=== PATIENT | male | born 1970 | race Caucasian/White ===

== ENCOUNTER 2018-06-04 08:20 | Outpatient (REF) | payer BC, SELFPAY ==
[2018-06-04 21:17] LABS: Hemoglobin A1C 5.7 % (4.5-6.2)
[2018-06-04 21:29] LABS: ALT 27 U/L (12-78); AST 17 U/L (15-37); Albumin 3.6 g/dL (3.4-5.0); Alkaline Phosphatase 132 U/L (46-116); Anion Gap 8.6 mmol/L (3-11); BUN 12 mg/dL (7-18); Bilirubin, Total 0.5 mg/dL (0.2-1.0); CO2 24.4 mmol/L (21.0-32.0); Calcium 8.2 mg/dL (8.5-10.1); Chloride 106 mmol/L (98-107); Cholesterol 135 mg/dL (50-200); Glucose 94 mg/dL (70-100); HDL Cholesterol 22 mg/dL (40-60); LDL CHOLESTEROL 87 mg/dL (<100); Potassium 4.5 mmol/L (3.5-5.1); Sodium 139 mmol/L (136-145); Triglyceride 166 mg/dL (30-150)
== END 2018-06-04 08:21 ==
LOC: NCHCN 08:20
PROVIDERS: PCP Physician Assistant Medical; Visit Provider Physician Assistant Medical
DX: R73.01 Impaired fasting glucose (principal); I10 Essential (primary) hypertension; E78.6 Lipoprotein deficiency
CPT/HCPCS: 80053; 80061; 83721; 83036

== ENCOUNTER 2018-09-24 10:01 | Emergency (ER) | payer OTHER, SELFPAY ==
[2018-09-24 10:08] VITALS: BP 170/99; PULSE 102; RESP 15; TEMP 37.6; O2SAT 97
--- NOTE | 2018-09-24 10:16 | DI.RAD_ITS ---
SYMPTOM/DIAGNOSIS: MEDIAL LT KNEE PAIN AFTER FALL LEFT KNEE: No fracture is identified. The joint spaces are well maintained. IMPRESSION: Negative left knee.
--- NOTE | 2018-09-24 10:23 | ED.GENADUL_ITS ---
Discharge Plan Disposition Patient Disposition: HOME Condition: Good Discharge Details Chief Complaint: Orthopedic Clinical Impression: Knee sprain Primary Care Provider: Yuli Ziegler ED Provider: Isrrael Stein Home Meds and New Rx's Prescriptions: New acetaminophen [Mapap Extra Strength] 500 MG tablet 1,000 mg PO Q6H 5 Days Qty: 60 RF: 0 ibuprofen [Motrin IB] 200 MG tablet 600 mg PO Q6H 5 Days Qty: 60 RF: 0 Discharge Instructions Instructions: Knee Sprain (ED), RICE Therapy (ED) Additional Instructions: Please take medication as directed. Please use your knee brace as directed. Please follow-up with your primary care provider as soon as possible for reassessment. If you notice any worsening of your symptoms, or any new symptoms such as vomiting, diarrhea, fever, chills, shortness of breath, chest pain, numbness, weakness, or fainting , please return immediately to the emergency department for reevaluation. Please follow up with your primary care provider as soon as possible for reassessment and reevaluation. As always, it was a pleasure participating in your medical care today. Referrals: Yuli Ziegler PA [Primary Care Provider] - Medical Decision Making This is a pleasant 48-year-old male who presents for pain in his left medial knee which occurred after falling off a ladder yesterday. He actually landed on his right side but felt that he twisted his left knee as he was falling. Symptoms are made worse with ambulation, and flexion extension as well as showing evidence of a positive Venus sign concerning for mild meniscal injury. He also does have some worsening of pain with valgus stretching of his left knee. We will get an x-ray to rule out fracture although I feel this less likely. We will give the patient NSAIDs, and recommend continued ice, Giancarlo wrap, and a hinged knee brace. Patient is able to ambulate well at this time without crutches. 11:15 AM Patient's x-ray has returned and demonstrates no evidence of acute fracture or dislocation. I feel the symptoms are clinically consistent with a ligamentous injury. We have placed him in a knee brace, he will be given Tylenol and Motrin for home use, and instructions for rest ice elevation and continued brace use. We have instructed close follow-up with his PCP. We discussed red flags which return the patient understands. I have extensively reviewed the treatment plan and discharge instructions with the patient. I have addressed all patient concerns at this time. The patient was made aware of what symptoms to monitor for that would warrant a return to the emergency department. Discussed the plan with the patient, they demonstrate verbal understanding and agreement with our assessment and plan at this time. HPI General Date/Time Provider Initiated Documentation: 09/24/18 10:15 . HPI Narrative: This is a 48-year-old male with a past medical history of hypertension high cholesterol who presents today for evaluation of left knee pain. Patient states that he was getting [place] in [place] last night, and slipped while on the ladder. He fell back roughly 4-5 feet, landing on his right side. He had no significant pain in his right side however as he was falling he thinks he might have twisted his left knee and now starting this morning he has been noticing notable pain on the medial aspect of his left knee, it is worsened with walking and movement, particularly flexion extension, and is improved with Tylenol and Motrin last dose was last night. He denies hearing any pops, or any crepitus. He denies any associated numbness tingling or weakness. He denies any proximal or distal pain from the knee itself. He has no other associated complaints at this time. He denies any pertinent family history recent surgeries Related Data Home Medications Medication Instructions Recorded Confirmed acetaminophen [Mapap Extra 1,000 mg PO Q6H 5 Days #60 tab 09/24/18 Strength] ibuprofen [Motrin Ib] 600 mg PO Q6H 5 Days #60 tab 09/24/18 Previous Rx's Medication Instructions Recorded acetaminophen [Mapap Extra 1,000 mg PO Q6H 5 Days #60 tab 09/24/18 Strength] ibuprofen [Motrin Ib] 600 mg PO Q6H 5 Days #60 tab 09/24/18 Allergies Allergy/AdvReac Type Severity Reaction Status Date / Time No Known Allergies Allergy Unverified 09/24/18 10:12 General Stated Complaint: Orthopedic ARTURO: 5 Review of Systems Review of Systems All systems reviewed & are unremarkable except as noted in HPI and below PFSH Social History Smoking/Tobacco Use Status: Current every day Exam Narrative Exam Narrative: 1.Const: Well-nourished, Well-developed, appearing stated age 2.Eyes: PERRL, no conjunctival injection, and symmetrical lids. 3.ENT: Atraumatic external nose and ears. Moist MM. Neck: Symmetric, trachea midline, No thyromegaly. 4.CVS: +S1/S2, No murmurs or gallops. Peripheral pulses 2+ and equal in all extremities. Brisk capillary refill in all extremities. 5.RESP: Unlabored respiratory effort. Clear to auscultation bilaterally. No wheezes rales or rhonchi 6.GI: Soft, Nontender/Nondistended, No hepatosplenomegaly. No guarding or rebound. 7.MSK: Normocephalic/Atraumatic, Extremities w/o deformity. No cyanosis or clubbing, right lower extremity is normal on exam. Left lower extremity demonstrates mild tenderness on palpation over the medial aspect of the left knee. No significant swelling. Pain is noted with passive and active flexion and extension of the knee. Pain is worsened with valgus stressing. Venus test does elicit more pain on the medial meniscal component of his knee. Normal flexion, tension of the foot, normal sensation, dorsalis pedis +2 bilaterally. Normal hip flexion and extension. No midline tenderness to palpation over the CTLS spine. Normal ROM in flexion, extension, side bend, and rotation. Patient has +5 out of 5 strength in the lower extremities in dorsiflexion and plantarflexion, knee flexion and extension, hip flexion and extension. There is +2 over 2 dorsalis pedis pulses bilaterally. There is normal sensation to the skin with light touch at the foot, knee, and hip. Normal saddle sensation. Good sensation over the deep sural nerve area bilaterally. Rectal exam deferred. Reflexes are +2 over 4 in the patellar reflex bilaterally. +5 out of 5 strength in the medial, ulnar, radial nerve distribution bilaterally in the hands as well as intact light touch sensation to these dermatomes on the hands 8.Skin: Warm, Dry. No rashes or lesions. 9.Neuro: sourcing manager II-XII grossly intact. Sensation grossly intact, no focal neurologic deficits. 10.Psych: (AAO) x3. Appropriate mood and affect Course Vital Signs Temperature 37.6 C H 09/24/18 10:08 Pulse 102 H 09/24/18 10:08 Respiratory Rate 15 09/24/18 10:08 Blood Pressure 170/99 H 09/24/18 10:08 Pulse Oximetry 97 09/24/18 10:08 Temperature 37.6 C H 09/24/18 10:08 Temperature Source Skin 09/24/18 10:08 Pulse 102 H 09/24/18 10:08 Respiratory Rate 15 09/24/18 10:08 Blood Pressure 170/99 H 09/24/18 10:08 Blood Pressure Position Sitting 09/24/18 10:08 Pulse Oximetry 97 09/24/18 10:08 Oxygen Delivery Method Room Air 09/24/18 10:08 Oxygen Flow Rate 0 09/24/18 10:08 Pain Level 5 09/24/18 10:08
[2018-09-24] MEDS: Ketorolac 30 MG/ML VIAL 15 MG IM (11:29)
[2018-09-24] MEDS: Acetaminophen 500 MG TAB 1000 MG PO (11:29)
== END 2018-09-24 11:33 | disposition home or self-care (01) ==
PROVIDERS: Emergency Provider Student in an Organized Health Care Education/Training Program; PCP Physician Assistant Medical
DX: S83.92XA Sprain of unspecified site of left knee, initial encounter (principal); W10.8XXA Fall (on) (from) other stairs and steps, initial encounter; X50.9XXA Other and unspecified overexertion or strenuous movements or postures, initial encounter; Y99.0 Civilian activity done for income or pay; I10 Essential (primary) hypertension
CPT/HCPCS: 29505; 73562; 96372; 99284; J1885; L1810

== ENCOUNTER 2019-01-13 08:56 | Outpatient (REF) | payer BC, SELFPAY ==
[2019-01-13 22:05] LABS: Anion Gap 11.6 mmol/L (3-11); BUN 14 mg/dL (7-18); CO2 24.4 mmol/L (21.0-32.0); CREATININE 1.09 mg/dL (0.70-1.30); Calcium 8.7 mg/dL (8.5-10.1); Chloride 102 mmol/L (98-107); Glucose 123 mg/dL (70-100); Potassium 3.9 mmol/L (3.5-5.1); Sodium 138 mmol/L (136-145)
== END 2019-01-13 09:16 ==
LOC: NCHCN 08:56
PROVIDERS: PCP Physician Assistant Medical; Visit Provider Physician Assistant Medical
DX: I10 Essential (primary) hypertension (principal)
CPT/HCPCS: 80048

== ENCOUNTER 2019-07-07 12:26 | Outpatient (REF) | payer BC, SELFPAY ==
[2019-07-07 22:45] LABS: Hemoglobin A1C 5.9 % (4.5-6.2)
[2019-07-07 22:46] LABS: ALT 38 U/L (16-63); AST 20 U/L (15-37); Albumin 3.8 g/dL (3.4-5.0); Alkaline Phosphatase 134 U/L (46-116); Anion Gap 9.3 mmol/L (3-11); BUN 12 mg/dL (7-18); Bilirubin, Total 0.2 mg/dL (0.2-1.0); CO2 24.7 mmol/L (21.0-32.0); CREATININE 1.07 mg/dL (0.70-1.30); Calcium 8.9 mg/dL (8.5-10.1); Calculated LDL 68 mg/dL; Chloride 105 mmol/L (98-107); Cholesterol 133 mg/dL (50-200); Glucose 105 mg/dL (70-100); HDL Cholesterol 23 mg/dL (40-60); Potassium 4.3 mmol/L (3.5-5.1); Sodium 139 mmol/L (136-145); Total Protein 7.5 g/dL (6.4-8.2); Triglyceride 210 mg/dL (30-150)
== END 2019-07-07 12:46 ==
LOC: NCHCN 12:26
PROVIDERS: PCP Physician Assistant Medical; Visit Provider Physician Assistant Medical
DX: Z00.00 Encounter for general adult medical examination without abnormal findings (principal); R73.01 Impaired fasting glucose; I10 Essential (primary) hypertension
CPT/HCPCS: 80053; 80061; 83036

== ENCOUNTER 2020-07-08 11:16 | Outpatient (REF) | payer BC, SELFPAY ==
[2020-07-08 20:20] LABS: Anion Gap 8.1 mmol/L (3-11); BUN 12 mg/dL (7-18); CO2 26.9 mmol/L (21.0-32.0); CREATININE 1.08 mg/dL (0.70-1.30); Calcium 8.6 mg/dL (8.5-10.1); Calculated LDL 107 mg/dL (<100); Chloride 103 mmol/L (98-107); Cholesterol 150 mg/dL (<200); Glucose 105 mg/dL (74-106); HDL Cholesterol 29 mg/dL (40-60); Potassium 4.6 mmol/L (3.5-5.1); Sodium 138 mmol/L (136-145); Triglyceride 70 mg/dL (<150)
== END 2020-07-08 11:36 ==
LOC: NCHCN 11:16
PROVIDERS: PCP Physician Assistant Medical; Visit Provider Physician Assistant Medical
DX: E11.9 Type 2 diabetes mellitus without complications (principal); I10 Essential (primary) hypertension
CPT/HCPCS: 80048; 80061

== ENCOUNTER 2020-12-13 14:54 | Outpatient (REF) | payer OTHER, SELFPAY ==
[2020-12-15 13:07] LABS: COVID-19 RT-PCR UVMMC Result Negative (Negative)
== END 2020-12-13 14:55 | disposition home or self-care (01) ==
LOC: NCHCN 14:54
PROVIDERS: PCP Physician Assistant Medical; Visit Provider Physician Assistant Medical
DX: J06.9 Acute upper respiratory infection, unspecified (principal)
CPT/HCPCS: U0003

== ENCOUNTER 2021-04-08 13:53 | Emergency (ER) | payer OTHER, SELFPAY ==
[2021-04-08 13:57] VITALS: BP 155/100; PULSE 101; RESP 16; TEMP 36.8; O2SAT 97
--- NOTE | 2021-04-08 14:15 | ED.GENADUL_ITS ---
Discharge Plan Disposition Patient Disposition: HOME Condition: Stable Discharge Details Clinical Impression: Muscle strain of right forearm Primary Care Provider: Yuli Ziegler ED Provider: Gayla Evangelista Home Meds and New Rx's Prescriptions: No Action No Known Home Meds RF: 0 Discharge Instructions Instructions: Muscle Strain (ED) Additional Instructions: Rest, ice, and elevate the affected area as much as possible. Alternate tylenol and motrin as needed and directed for pain. You can take 500 mg of tylenol every 4 hours. Do not exceed a maximum tylenol dose of 3000 mg/day. You can take 600 mg of ibuprofen every 6 hours. Follow-up with your primary care doctor in 1 week and for referral to orthopedics if your symptoms do not improve or worsen for reevaluation and for referral for additional testing or physical therapy if needed. Return to the emergency department with any worsening or new concerning symptoms. Referrals: Rudy Feldman MD [ [facility] STAFF PHYSICIAN] - Discharge Data Discharge Physician: Gayla Evangelista Medical Decision Making 51-year-old male presents with right forearm pain and a crunching sound when lif ting a 300 pound rock onto a bucket prior to arrival. His right proximal dorsal medial forearm is minimally tender to palpation with mild edema. There is no evidence of trauma or cellulitis. His right elbow, wrist and hand are normal to inspection without deformity or pain. He is neurovascular intact. Suspect most likely muscle strain or spasm. Also consider tendinitis. Will obtain an x-ray to rule out fracture. X-ray negative. Giancarlo wrap placed to right forearm. Patient given orthopedic follow-up information if needed. Advised on importance of RICE. Usual and customary return precautions given prior to discharge. Medical Records Medical records reviewed: Yes I reviewed the patient's medical records. Imaging Data Radiologic Study: Radiologist's impression: XR Right Forearm Exam date and time: 04/08/2021 2:15 PM Age: 51 years old Clinical indication: Other: Crunch sound/pain R forearm, R/O FX TECHNIQUE: Imaging protocol: XR Right forearm. Views: 2 views. COMPARISON: No relevant prior studies available. FINDINGS: Bones/joints: Normal. Soft tissues: Normal. IMPRESSION: No acute findings. HPI General Mode of arrival: ambulatory . Date/Time Provider Initiated Documentation: 04/08/21 14:03 . Limitations to Documentation: no limitations . Information obtained by: patient . HPI Narrative: Patient is a 51-year-old male who presents to the ED with complaint of right forearm pain and a crunching sound that he noted when lifting an approximate 300 pound rock onto a bucket. Patient states he has pain that radiates from his forearm up to his elbow with movement. He denies any pain in his right shoulder, wrist or hand. He took 2 tabs of Advil and 2 tabs of Tylenol prior to arrival with some relief Related Data Home Medications Medication Instructions Recorded Confirmed Unknown [No Known Home Meds] 04/08/21 04/08/21 Allergies Allergy/AdvReac Type Severity Reaction Status Date / Time No Known Allergies Allergy Unverified 04/08/21 14:01 General Stated Complaint: Orthopedic ARTURO: 4 Review of Systems All systems reviewed & are unremarkable except as noted in HPI and below Constitutional Constitutional: Reports as per HPI, Denies chills and Denies fever(s) Eyes Eyes: Denies blurry vision ENT Ears, Nose, Mouth, and Throat: Denies dizziness, Denies sore throat and Denies throat swelling Cardiovascular Cardiovascular: Denies chest pain and Denies dyspnea Respiratory Respiratory: Denies cough and Denies dyspnea Gastrointestinal Gastrointestinal: Denies abdominal pain, Denies diarrhea and Denies vomiting Genitourinary Genitourinary: Denies hematuria and Denies dysuria Musculoskeletal Musculoskeletal: Denies back pain and Denies numbness Integumentary/Breasts Skin/Breast: Denies lesions and Denies rash Neurologic Neurologic: Denies dizziness, Denies localized weakness and Denies numbness Allergic/Immunologic Allergic/Immunologic: Denies throat swelling [facility] Social History Smoking/Tobacco Use Status: Current every day Tobacco Type: cigarettes Smoking risk assessment performed?: Yes Drug use: Never Substance use type: does not use Do you feel safe in your relationship?: Yes Exam Const General: cooperative, healthy appearing and no acute distress HENMT Head: normal to inspection Mouth: oral mucosae normal Eyes General: appearance normal, both eyes and all related structures Neck Neck: normal visual inspection Resp Effort & Inspection: normal respiratory effort and able to speak in complete sentences Cardio Rate: regular rate Skin General skin exam: no rashes or lesions noted Neuro General: patient alert, patient awake and patient oriented x3 Motor: muscle tone normal throughout Extrem Elbow/forearm/wrist images: 1. Tenderness and mild edema R proximal forearm. Normal supination and pronation with some pain. Other: No tenderness to palpation to right medial or lateral epicondyles or olecranon. No tenderness palpation of right wrist or hand. Right radial and ulnar pulses intact. Normal flexion extension at R wrist and elbow Psych Appearance: grossly normal Affect: normal affect Course Vital Signs Vital signs: Vital Signs Temperature 98.2 F 04/08/21 13:57 Pulse 101 H 04/08/21 13:57 Respiratory Rate 16 04/08/21 13:57 Blood Pressure 155/100 H 04/08/21 13:57 Pulse Oximetry 97 04/08/21 13:57 Temperature 98.2 F 04/08/21 13:57 Temperature Source Oral 04/08/21 13:57 Pulse 101 H 04/08/21 13:57 Respiratory Rate 16 04/08/21 13:57 Respiratory Effort Non-Labored 04/08/21 13:57 Blood Pressure 155/100 H 04/08/21 13:57 Blood Pressure Position Sitting 04/08/21 13:57 Pulse Oximetry 97 04/08/21 13:57 Oxygen Delivery Method Room Air 04/08/21 13:57 Oxygen Flow Rate 0 04/08/21 13:57 Pain Level 8 04/08/21 13:57
--- NOTE | 2021-04-08 14:27 | DI.RAD_ITS ---
Exam(s) XR FOREARM RT EXAM: XR FOREARM RT CLINICAL HISTORY: crunch sound/pain R forearm, r/o fx. TECHNIQUE: 2D digital imaging was performed. COMPARISON: No exams were available for comparison FINDINGS: BONES: No acute fracture is present. No bony destructive lesion is seen. Visualized portion of elbow and wrist joints are unremarkable. SOFT TISSUE: Normal. IMPRESSION: Unremarkable radiographs of the left forearm. DATA REPOSITORY: RADIATION DOSE DELIVERED:
--- NOTE | 2021-04-08 15:04 | DI.VRAD_ITS ---
Addendum created by Sarina Wild MD on 04/08/2021 3:04:58 PM EDT: PROCEDURE INFORMATION: Exam: XR Right Forearm Exam date and time: 04/08/2021 2:15 PM Age: 51 years old Clinical indication: Other: Crunch sound/pain R forearm, R/O FX TECHNIQUE: Imaging protocol: XR Right forearm. Views: 2 views. COMPARISON: No relevant prior studies available. FINDINGS: Bones/joints: Normal. Soft tissues: Normal. IMPRESSION: No acute findings. Initial report created on 04/08/2021 3:04:23 PM EDT: PROCEDURE INFORMATION: Exam: XR Right Forearm Exam date and time: 04/08/2021 2:15 PM Age: 51 years old Clinical indication: Other: Crunch sound/pain R forearm, R/O FX TECHNIQUE: Imaging protocol: XR Right forearm. Views: 2 views. COMPARISON: No relevant prior studies available. FINDINGS: Bones/joints: Normal. Soft tissues: Normal. IMPRESSION: No acute findings. Are Dictated and Authenticated by: Sarina Wild MD. Ordering:MIGDALIA Shukla MD
== END 2021-04-08 15:20 | disposition home or self-care (01) ==
PROVIDERS: Emergency Provider Physician Assistant; PCP Physician Assistant Medical
DX: S56.811A Strain of other muscles, fascia and tendons at forearm level, right arm, initial encounter (principal); X50.0XXA Overexertion from strenuous movement or load, initial encounter
CPT/HCPCS: 99283; 73090

== ENCOUNTER 2024-09-08 13:09 | Outpatient (REF) | payer OTHER, SELFPAY ==
[2024-09-08 15:16] LABS: Abs Immature Grans 0.01 10^3/uL (0.0-0.06); Absolute Basophil Count 0.03 10^3/uL (0.0-0.2); Absolute Eosinophil Count 0.16 10^3/uL (0.0-0.7); Absolute Lymphocyte Count 2.34 10^3/uL (1.2-3.4); Absolute Monocyte Count 0.51 10^3/uL (0.1-0.8); Absolute Neutrophil Count 3.03 10^3/uL (1.2-6.7); Basophils % 0.5 %; Eosinophils % 2.6 %; HCT 49.5 % (40.0-50.0); HGB 17.1 g/dL (13.5-17.5); Immature Grans % 0.2 %; Lymphocytes % 38.5 %; MCH 31.5 pg (27.0-33.0); MCHC 34.5 % (32.0-36.0); MCV 91 fL (80-95); MPV 8.8 fL (8.0-11.0); Monocytes % 8.4 %; Neutrophils % 49.8 %; Platelet Count 186 10^3/uL (130-400); RBC 5.42 10^6/uL (4.36-5.78); RDW 13.2 % (11.8-14.1); RDW-SD 44.7 fL; WBC 6.08 10^3/uL (4.4-10.8)
[2024-09-08 17:15] LABS: ALT 38 U/L (16-63); AST 20 U/L (15-37); Albumin 3.9 g/dL (3.4-5.0); Alkaline Phosphatase 130 U/L (46-116); Anion Gap 5.7 mmol/L (3-11); BUN 16 mg/dL (7-18); Bilirubin, Total 0.65 mg/dL (0.2-1.0); CO2 27.3 mmol/L (21.0-32.0); CREATININE 1.4 mg/dL (0.70-1.30); Calculated LDL 95 mg/dL (<100); Chloride 108 mmol/L (98-107); Cholesterol 157 mg/dL (<200); Estimated GFR 60.47 (mL/min/1.73m2); Glucose 105 mg/dL (74-106); HDL Cholesterol 36 mg/dL (40-60); Potassium 4.6 mmol/L (3.5-5.1); Sodium 141 mmol/L (136-145); TSH (W/Ref FT4) 11.52 uIU/mL (0.36-3.74); Total Protein 7.9 g/dL (6.4-8.2); Triglyceride 131 mg/dL (<150); Vitamin D 25 Total 18.8 ng/mL (30-100)
[2024-09-08 17:44] LABS: Hemoglobin A1C 5.6 % (<5.7)
[2024-09-08 18:33] LABS: FREE T4 0.75 ng/dL (0.76-1.46)
[2024-09-12 09:57] LABS: Testosterone, Total 334 ng/dL (240-950)
== END 2024-09-08 13:10 | disposition home or self-care (01) ==
LOC: NCHCN 13:09
PROVIDERS: PCP Physician Assistant Medical; Visit Provider Physician Assistant Medical
DX: I10 Essential (primary) hypertension (principal); E55.9 Vitamin D deficiency, unspecified; R73.03 Prediabetes; R53.83 Other fatigue
CPT/HCPCS: 80053; 80061; 82306; 84403; 83036; 84439; 84443; 85025

== ENCOUNTER 2024-11-06 20:16 | Outpatient (REF) | payer SELFPAY ==
[2024-11-06 16:25] LABS: Anion Gap 7.8 mmol/L (3-11); BUN 25 mg/dL (7-18); CO2 30.2 mmol/L (21.0-32.0); CREATININE 1.3 mg/dL (0.70-1.30); Calcium 9.6 mg/dL (8.5-10.1); Chloride 102 mmol/L (98-107); Glucose 112 mg/dL (74-106); Potassium 3.7 mmol/L (3.5-5.1); Sodium 140 mmol/L (136-145); TSH 13.02 uIU/mL (0.36-3.74); Vitamin D 25 Total 32.5 ng/mL (30-100)
== END 2024-11-06 20:17 | disposition home or self-care (01) ==
LOC: NCHCN 20:16
PROVIDERS: PCP Physician Assistant Medical; Visit Provider Physician Assistant Medical
DX: I10 Essential (primary) hypertension (principal); E03.9 Hypothyroidism, unspecified; E55.9 Vitamin D deficiency, unspecified
CPT/HCPCS: 80048; 82306; 84443

== ENCOUNTER 2024-12-29 08:46 | Outpatient (REF) | payer OTHER, SELFPAY ==
[2024-12-29 17:11] LABS: TSH (W/Ref FT4) 7.79 uIU/mL (0.36-3.74)
== END 2024-12-29 08:47 | disposition home or self-care (01) ==
LOC: NCHCN 08:46
PROVIDERS: PCP Physician Assistant Medical; Visit Provider Physician Assistant Medical
DX: E03.9 Hypothyroidism, unspecified (principal)
CPT/HCPCS: 84439; 84443

== ENCOUNTER 2025-04-05 08:02 | Outpatient (REF) | payer OTHER, SELFPAY ==
[2025-04-05 15:52] LABS: Anion Gap 5.1 mmol/L (3-11); BUN 13 mg/dL (7-18); CO2 28.9 mmol/L (21.0-32.0); CREATININE 1.2 mg/dL (0.70-1.30); Calcium 8.8 mg/dL (8.5-10.1); Chloride 106 mmol/L (98-107); Estimated GFR 72.31 (mL/min/1.73m2); Glucose 134 mg/dL (74-106); Potassium 4.6 mmol/L (3.5-5.1); Sodium 140 mmol/L (136-145); TSH (W/Ref FT4) 3.95 uIU/mL (0.36-3.74)
[2025-04-05 16:32] LABS: FREE T4 0.88 ng/dL (0.76-1.46)
== END 2025-04-05 08:03 | disposition home or self-care (01) ==
LOC: NCHCN 08:02
PROVIDERS: PCP Physician Assistant Medical; Visit Provider Physician Assistant Medical
DX: I10 Essential (primary) hypertension (principal); E03.9 Hypothyroidism, unspecified
CPT/HCPCS: 80048; 84439; 84443

== ENCOUNTER 2025-07-06 08:24 | Outpatient (REF) | payer OTHER, SELFPAY ==
[2025-07-06 15:41] LABS: Hemoglobin A1C 5.7 % (<5.7)
[2025-07-06 15:45] LABS: TSH (W/Ref FT4) 5.61 uIU/mL (0.36-3.74)
== END 2025-07-06 08:25 | disposition home or self-care (01) ==
LOC: NCHCN 08:24
PROVIDERS: PCP Physician Assistant Medical; Visit Provider Physician Assistant Medical
DX: R73.03 Prediabetes (principal); E03.9 Hypothyroidism, unspecified
CPT/HCPCS: 83036; 84439; 84443

== ENCOUNTER 2025-10-05 07:51 | Outpatient (REF) | payer OTHER, SELFPAY ==
[2025-10-05 16:21] LABS: TSH (W/Ref FT4) 5.30 uIU/mL (0.55-4.78)
== END 2025-10-05 07:52 | disposition home or self-care (01) ==
LOC: NCHCN 07:51
PROVIDERS: PCP Physician Assistant Medical; Visit Provider Physician Assistant Medical
DX: E03.9 Hypothyroidism, unspecified (principal)
CPT/HCPCS: 84439; 84443